=== PATIENT | female | born 1930 | race Caucasian/White ===

== ENCOUNTER 2016-11-08 14:15 | Observation (INO) ==
--- NOTE | 2016-11-08 16:07 | Emergency Department Note ---
Disposition Clinical Impression: Syncope Qualifiers: Syncope type: unspecified Qualified Code(s): R55 - Syncope and collapse Disposition: Admitted As Inpatient Condition: Fair Fall HPI - General Chief Complaint: ED Fall Stated Complaint: fall Time Seen by Provider: 11/08/16 14:19 Source: EMS Nursing Notes Reviewed: Yes Vital Signs Reviewed: Yes - History of Present Illness HPI Narrative: Patient presents complaint of syncopal episode. Patient was sitting in a chair and went to standing position. Patient states she lost consciousness. There was no loss of bowel bladder function. There is no report of previous history of similar symptoms. Per report patient back at her baseline functioning. Is a reported he numbness and tingling. Patient denies vision changes. Patient denies any change in appetite. - Related Data Home Medications Medication Instructions Recorded Confirmed Acetaminophen [Tylenol] 325 mg GTUBE PRN PRN 11/08/16 11/08/16 Acetaminophen [Tylenol] 650 mg GTUBE PRN PRN 11/08/16 11/08/16 Acetaminophen [Tylenol] 650 mg GTUBE Q12H 11/08/16 11/08/16 Aspirin Enteric Coated [Aspirin EC] 81 mg GTUBE DAILY 11/08/16 11/08/16 Atorvastatin [Lipitor] 40 mg GTUBE HS 11/08/16 11/08/16 Calcium Carbonate [Calcium] 600 mg GTUBE BID 11/08/16 11/08/16 Cholecalciferol (Vitamin D3) 1,000 unit GTUBE DAILY 11/08/16 11/08/16 [Vitamin D3] Cholestyramine/Aspartame 1 gm GTUBE DAILY 11/08/16 11/08/16 [Cholestyramine Light Packet] Diclofenac Sodium [Voltaren] 1 appl TP PRN PRN 11/08/16 11/08/16 Digoxin [Lanoxin] 0.125 mg GTUBE DAILY 11/08/16 11/08/16 Diltiazem HCl 90 mg GTUBE QID 11/08/16 11/08/16 Diphenoxylate/Atropine [Lomotil 1 each GTUBE PRN PRN 11/08/16 11/08/16 2.5 mg/0.025 mg] Donepezil HCl [Aricept] 10 mg GTUBE HS 11/08/16 11/08/16 Furosemide [Lasix] 40 mg GTUBE DAILY 11/08/16 11/08/16 Lactase [Lactase Enzyme] 4,500 unit GTUBE PRN PRN 11/08/16 11/08/16 Lactase [Lactase Enzyme] 9,000 unit GTUBE PRN PRN 11/08/16 11/08/16 Levothyroxine [Synthroid] 25 mcg GTUBE QAM 11/08/16 11/08/16 Metoprolol [Lopressor] 100 mg GTUBE Q12H 11/08/16 11/08/16 Multivitamin [Multi-Day Vitamins] 1 each GTUBE DAILY 11/08/16 11/08/16 Sertraline [Zoloft] 50 mg PO DAILY 11/08/16 11/08/16 Warfarin [Coumadin] 3 mg PO QPM 11/08/16 11/08/16 Allergies Allergy/AdvReac Type Severity Reaction Status Date / Time Sulfa (Sulfonamide Allergy Anaphylaxis Verified 08/16/16 05:59 Antibiotics) lactose AdvReac Unknown Verified 11/08/16 17:44 All systems ED: reviewed and negative except as stated. Fall PMH - Past Medical History Medical history: Reports: atrial fibrillation, CVA, hyperlipidemia, thyroid disease Surgical history: Reports: non-contributory Psychiatric history: Reports: no psych history - Social History Smoking Status: Never smoker Alcohol use: Reports: none Drug use: Reports: none Physical Exam - General Limitations: no limitations General appearance: alert - Head Head exam: atraumatic, normocephalic, normal inspection - Eye Eye exam: Present: normal appearance, PERRL, EOMI - ENT ENT exam: normal exam, normal oropharynx, mucous membranes moist - Neck Neck exam: Present: normal inspection, full ROM, trachea midline - Chest Chest inspection: Present: normal inspection, symmetric chest wall rise - Respiratory Respiratory exam: Present: normal lung sounds bilaterally - Cardiovascular Cardiovascular exam: Present: bradycardia, irregular rhythm - Abdominal Exam Abdominal exam: Present: soft, Non-Tender. Absent: tenderness, distention, guarding, rebound, rigidity - Extremities Exam Extremities exam: Present: normal inspection, full ROM. Absent: tenderness, pedal edema - Back Exam Back exam: Present: normal inspection, full ROM. Absent: tenderness - Neurological Exam Neurological exam: Present: alert, oriented X3 - Psychiatric Psychiatric exam: Present: normal affect, normal mood - Skin Skin exam: Present: warm, dry, intact, normal color Course Vital Signs Temperature 97.8 F 11/08/16 14:17 Pulse Rate 44 11/08/16 14:17 Respiratory Rate 18 11/08/16 14:17 Blood Pressure 124/75 11/08/16 14:17 O2 Sat by Pulse Oximetry 97 11/08/16 14:17 Temperature 97.8 F 11/08/16 14:17 Pulse Rate 70 11/08/16 16:17 Respiratory Rate 18 11/08/16 16:17 Blood Pressure 150/84 11/08/16 16:17 O2 Sat by Pulse Oximetry 97 11/08/16 16:17 Oxygen Delivery Oxygen Delivery Room Air Fall - Differential Diagnosis Likely: syncope, arrhythmia, seizure - Lab Data Lab results reviewed: Yes I reviewed the patient's lab results. Result diagrams: 11/08/16 16:09 11/08/16 16:09 Lab Results 11/08/16 11/08/16 11/08/16 Range/Units 16:09 16:09 16:09 WBC 7.2 (4.3-11.1) K/mcL RBC 4.71 (3.82-4.97) M/mcL Hgb 14.5 (11.5-15.4) g/dL Hct 44.5 (35.3-44.9) % MCV 94.5 (83.0-100.0) fL MCH 30.8 (28.0-33.3) pg MCHC 32.6 (31.6-35.5) g/dL RDW 13.2 (11.5-14.5) % Plt Count 298 (140-400) K/mcL MPV 9.3 L (9.4-12.4) fL Immature Gran % 0.4 (0-4) % Seg Neutrophils % 67.5 % Lymphocytes % 18.4 % Monocytes % 10.9 % Eosinophils % 2.5 % Basophils % 0.3 % Neutrophils # 4.9 (1.6-8.9) K/mcL Lymphocytes # 1.3 (0.6-4.6) K/mcL Monocytes # 0.8 (0.0-1.3) K/mcL Eosinophils # 0.2 (0.0-0.6) K/mcL Basophils # 0.0 (0.0-0.2) K/mcL PT 57.1 H* (9.4-12.1) Seconds INR 5.0 H* APTT 45.2 H (26.0-36.0) Seconds Sodium 139 (136-145) mEq/L Potassium 3.9 (3.5-4.5) mEq/L Chloride 106 (98-109) mEq/L Carbon Dioxide 26 (19-29) mEq/L BUN 14 (7-20) mg/dL Creatinine 0.75 (0.57-1.11) mg/dL Est GFR ( Amer) > 60 (> 60) Est GFR (Non-Af Amer) > 60 (> 60) BUN/Creatinine Ratio 19 (6-26) Glucose 106 H (70-99) mg/dL Calculated Osmolality 289 (280-300) Lactic Acid (0.5-2.2) mmol/L Calcium 8.7 (8.6-10.8) mg/dL Total Bilirubin 0.4 (0.2-1.2) mg/dL AST 21 (5-34) Units/L ALT 18 (0-55) Units/L Alkaline Phosphatase 54 (38-126) Units/L Troponin I (0-0.03) ng/mL Serum Total Protein 6.6 (6.0-8.3) g/dL Albumin 3.0 L (3.5-5.0) g/dL Globulin 3.6 H (2.4-3.5) g/dL Albumin/Globulin Ratio 0.8 L (1.1-2.2) Urine Color (Yellow) Urine Clarity (Clear) Urine pH (5.0-8.0) pH Units Ur Specific Evergreen (1.010-1.025) Urine Protein (Neg-Trace) mg/dL Urine Glucose (UA) (Normal) mg/dL Urine Ketones (Negative) mg/dL Urine Blood (Negative) Urine Nitrite (Negative) Urine Bilirubin (Negative) Urine Urobilinogen (Normal) mg/dL Ur Leukocyte Esterase (Negative) Urine Microscopic RBC (0-3) per hpf Urine Microscopic WBC (0-3) per hpf Ur Squamous Epith Cells (None-Few) per lpf Urine Bacteria (None-Few) per hpf Hyaline Casts (None-Few) per lpf Urine Yeast Ur Culture Indicated? (NO) 11/08/16 11/08/16 11/08/16 Range/Units 16:09 16:09 17:30 WBC (4.3-11.1) K/mcL RBC (3.82-4.97) M/mcL Hgb (11.5-15.4) g/dL Hct (35.3-44.9) % MCV (83.0-100.0) fL MCH (28.0-33.3) pg MCHC (31.6-35.5) g/dL RDW (11.5-14.5) % Plt Count (140-400) K/mcL MPV (9.4-12.4) fL Immature Gran % (0-4) % Seg Neutrophils % % Lymphocytes % % Monocytes % % Eosinophils % % Basophils % % Neutrophils # (1.6-8.9) K/mcL Lymphocytes # (0.6-4.6) K/mcL Monocytes # (0.0-1.3) K/mcL Eosinophils # (0.0-0.6) K/mcL Basophils # (0.0-0.2) K/mcL PT (9.4-12.1) Seconds INR APTT (26.0-36.0) Seconds Sodium (136-145) mEq/L Potassium (3.5-4.5) mEq/L Chloride (98-109) mEq/L Carbon Dioxide (19-29) mEq/L BUN (7-20) mg/dL Creatinine (0.57-1.11) mg/dL Est GFR ( Amer) (> 60) Est GFR (Non-Af Amer) (> 60) BUN/Creatinine Ratio (6-26) Glucose (70-99) mg/dL Calculated Osmolality (280-300) Lactic Acid 1.1 (0.5-2.2) mmol/L Calcium (8.6-10.8) mg/dL Total Bilirubin (0.2-1.2) mg/dL AST (5-34) Units/L ALT (0-55) Units/L Alkaline Phosphatase (38-126) Units/L Troponin I 0.02 (0-0.03) ng/mL Serum Total Protein (6.0-8.3) g/dL Albumin (3.5-5.0) g/dL Globulin (2.4-3.5) g/dL Albumin/Globulin Ratio (1.1-2.2) Urine Color Yellow (Yellow) Urine Clarity Clear (Clear) Urine pH 6.5 (5.0-8.0) pH Units Ur Specific [place] 1.005 L (1.010-1.025) Urine Protein Negative (Neg-Trace) mg/dL Urine Glucose (UA) Normal (Normal) mg/dL Urine Ketones Negative (Negative) mg/dL Urine Blood Large H (Negative) Urine Nitrite Negative (Negative) Urine Bilirubin Negative (Negative) Urine Urobilinogen Normal (Normal) mg/dL Ur Leukocyte Esterase Negative (Negative) Urine Microscopic RBC 5-15 H (0-3) per hpf Urine Microscopic WBC 0-3 (0-3) per hpf Ur Squamous Epith Cells Few (None-Few) per lpf Urine Bacteria None Seen (None-Few) per hpf Hyaline Casts None Seen (None-Few) per lpf Urine Yeast Test Not Performed Ur Culture Indicated? NO (NO) - Radiology Data Radiology results reviewed: Yes I reviewed the patient's radiology results. Chest X-Ray 11/08/16 14:48 IMPRESSION: No acute cardiopulmonary disease is identified. D/ / Vidal Solis MD / Vidal Solis MD Interpreting Provider: Vidal Solis MD Head CT 11/08/16 14:48 IMPRESSION: No acute intracranial abnormality. D/ / Damon Duran MD / Damon Duran MD Interpreting Provider: Damon Duran MD Cervical Spine CT 11/08/16 14:49 IMPRESSION: No acute abnormality of the cervical spine. Nonacute findings as discussed. D/ / Damon Duran MD / Damon Duran MD Interpreting Provider: Damon Duran MD Elbow X-Ray 11/08/16 14:50 IMPRESSION: Diffuse edema of the forearm and elbow without acute osseous abnormality. D/ / Damon Duran MD / Damon Duran MD Interpreting Provider: Damon Duran MD Forearm X-Ray 11/08/16 14:50 IMPRESSION: Diffuse edema of the forearm and elbow without acute osseous abnormality. D/ / Damon Duran MD / Damon Duran MD Interpreting Provider: Damon Duran MD Shoulder X-Ray 11/08/16 14:50 IMPRESSION: No acute osseous injury of the right shoulder is identified. D/ / Vidal Solis MD / Vidal Solis MD Interpreting Provider: Vdial Solis MD - EKG Data EKG attestation: Yes I reviewed and interpreted this EKG. Rate: bradycardia Rhythm: A.Fib Critical Care Time Total Critical Care Time: 30 Attestation: Critical care performed: Time is exclusive of separately billable procedures. Time includes: direct patient care, patient reassessment, coordination of patient care, interpretation of data (laboratory data, radiology data, and respiratory data), review of patient's medical records, medical consultation and documentation of patient care. Procedures included in critical care time: Procedures excluded from critical care time:
[2016-11-08 16:20] LABS: Basophils % 0.3 %; Eosinophils # 0.2 K/mcL (0.0-0.6); Eosinophils % 2.5 %; Hematocrit 44.5 % (35.3-44.9); Hemoglobin 14.5 g/dL (11.5-15.4); Immature Granulocytes % 0.4 % (0-4); Lymphocytes # 1.3 K/mcL (0.6-4.6); Lymphocytes % 18.4 %; Mean Corpuscular HGB Conc 32.6 g/dL (31.6-35.5); Mean Corpuscular Hemoglobin 30.8 pg (28.0-33.3); Mean Corpuscular Volume 94.5 fL (83.0-100.0); Mean Platelet Volume 9.3 fL (9.4-12.4); Monocytes # 0.8 K/mcL (0.0-1.3); Monocytes % 10.9 %; Neutrophils # 4.9 K/mcL (1.6-8.9); Platelet Count 298 K/mcL (140-400); Red Blood Count 4.71 M/mcL (3.82-4.97); Red Cell Distribution Width 13.2 % (11.5-14.5); Segmented Neutrophils % 67.5 %
[2016-11-08 16:36] LABS: Alanine Aminotransferase 18 Units/L (0-55); Albumin/Globulin Ratio 0.8 (1.1-2.2); Alkaline Phosphatase 54 Units/L (38-126); Aspartate Amino Transferase 21 Units/L (5-34); BUN/Creatinine Ratio 19 (6-26); Bilirubin,Total 0.4 mg/dL (0.2-1.2); Blood Urea Nitrogen 14 mg/dL (7-20); Calcium 8.7 mg/dL (8.6-10.8); Carbon Dioxide 26 mEq/L (19-29); Chloride 106 mEq/L (98-109); Globulin 3.6 g/dL (2.4-3.5); Glucose 106 mg/dL (70-99); Osmolality,Calculated 289 (280-300); Potassium 3.9 mEq/L (3.5-4.5); Sodium 139 mEq/L (136-145); Total Protein 6.6 g/dL (6.0-8.3); eGFR For African Americans > 60 (> 60); eGFR For Non-African Americans > 60 (> 60)
[2016-11-08 16:43] LABS: Activated Partial Thrombo Time 45.2 Seconds (26.0-36.0)
[2016-11-08 16:48] LABS: Prothrombin Time 57.1 Seconds (9.4-12.1)
[2016-11-08 17:41] LABS: Bilirubin,Urine Negative (Negative); Blood,Urine Large (Negative); Clarity,Urine Clear (Clear); Color,Urine Yellow (Yellow); Glucose,Urine (UA) Normal (Normal); Ketones,Urine Negative (Negative); Leukocyte Esterase,Urine Negative (Negative); Nitrite,Urine Negative (Negative); PH,Urine 6.5 pH Units (5.0-8.0); Protein,Urine Negative (Neg-Trace); Specific Gravity,Urine 1.005 (1.010-1.025); Urobilinogen,Urine Normal (Normal)
[2016-11-08 17:46] LABS: Bacteria,Urine None Seen per hpf (None-Few); Hyaline Casts,Urine None Seen per lpf (None-Few); Squamous Epithelial Cell,Urine Few per lpf (None-Few); WBC,Urine 0-3 per hpf (0-3)
[2016-11-08] MEDS ORDERED: *HR* Phytonadione 5 MG TABLET PO ONE (18:21)
--- NOTE | 2016-11-08 21:51 | Internal Med History&Physical ---
Date of Encounter: 11/08/16 Time of Encounter: 08:00 Assessment and Plan (1) Syncope Current visit: Yes Status: Acute Multifactorial. Bradycardia with orthostatic involvement possibly secondary to medications. Will decrease metoprolol to 50mg BID. Closely monitor BPs PT and OT ordered. Chest XR demonstrates no acute cadiopulmonary disease. XR of the shoulder, elbow, and forearm demonstrate no acute osseous abnormality CT of the head and neck demonstrate no acute intracranial abnormality and no acute abnormality of the cervical spine. Repeat CT of the head demonstrates no acute intracranial abnormality. EKG demonstrates bradycardia with atrial fibrillation. Qualifiers: Syncope type: unspecified Qualified Code(s): R55 - Syncope and collapse (2) Supratherapeutic INR Current visit: Yes Status: Acute Vitamin K given in the emergency department. Hold coumadin until within therapeutic range for A. Fib of 2-3. Recheck Coags in the AM (3) Altered mental status Current visit: Yes Status: Acute Repeat CT of the head demonstrates no acute intracranial abnormality. 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 Patient is pleasantly confused without agitation. Continue 1:1 observation Haldol 2mg IM PRN for severe agitation. Presumed sundowning. Unable to assess code status. Full code for time being. Please reassess in the morning with patient's family members present. Qualifiers: Altered mental status type: transient alteration of awareness Qualified Code(s): R40.4 - Transient alteration of awareness (4) Atrial fibrillation Current visit: Yes Status: Acute On coumadin, currently supratherapeutic. Rate control with metoprolol 50mg Q12hr. Continue digoxin. Continue cardizem. Qualifiers: Atrial fibrillation type: chronic Qualified Code(s): I48.2 - Chronic atrial fibrillation (5) Hypothyroidism Current visit: Yes Status: Acute Continue synthroid. Qualifiers: Hypothyroidism type: acquired Qualified Code(s): E03.9 - Hypothyroidism, unspecified (6) History of CVA (cerebrovascular accident) Current visit: Yes Status: Acute No evidence of acute CVA. Residual RUE weakness due to previous CVA. (7) DVT prophylaxis Current visit: Yes Status: Acute Patient is currently supratherapeutic on her Coumadin. PT is 57.1 INR of 5.0 and PTT of 45.2 Will continue to monitor at this time. (8) Hyperlipidemia Current visit: Yes Status: Acute Continue lipitor Qualifiers: Hyperlipidemia type: unspecified Qualified Code(s): E78.5 - Hyperlipidemia , unspecified (9) Gastrostomy tube dependent Current visit: Yes Status: Acute Unclear etiology. Will keep NPO for time being. Unable to obtain history of why the patient needs G-tube at this time. Internal Medicine - H&P: HPI Chief complaint: sycopal episode Admitted From: Emergency Dept Plans for Post Hospital Care: Home History of present illness: Ms. Bird is a 86 year old female with PMH significant of A. fib, history of CVA, HLD, alzheimers and hypothyroidism who presented to the emergency department after a syncopal episode. Further history was unobtainable as the patient had a change in mental status after initial evaluation. The patient had a repeat head CT that did not demonstrate any acute intracranial hemorrhage. She has underlying dementia. The history is obtained by medical records and talking with the emergency department physician. The patient suffered a syncopal episode after standing from a sitting position. She does not have any history of syncopal episodes. She did not lose bowel or bladder function during her syncopal episode. She fell onto her right side, but did not suffer any fractures. Upon arrival to the ED the patient was alert and oriented but found to be bradycardic. She additionally had a supratherapeutic INR. The of the patient stated she was back to her baseline when she first arrived to the ED. At this time the patient is saying that she is going to be in March and was asking for her mother. She does not know where she is or why she is here. She denies having any pain that this time. Past Med Surg Social Fam HX - Past Medical History Medical history: atrial fibrillation, CVA, hyperlipidemia, thyroid disease Psychiatric history: no psych history - Past Surgical History Surgical History: non-contributory - Social History Smoking Status: Never smoker Smokeless Tobacco Status: No Alcohol use: none Drug use: none - Additional Family History Additional family history: Unobtainable due to mental status Internal Medicine - H&P: Meds Acetaminophen [Tylenol] 325 mg GTUBE PRN PRN 11/08/16 [History] Acetaminophen [Tylenol] 650 mg GTUBE PRN PRN 11/08/16 [History] Acetaminophen [Tylenol] 650 mg GTUBE Q12H 11/08/16 [History] Aspirin Enteric Coated [Aspirin EC] 81 mg GTUBE DAILY 11/08/16 [History] Atorvastatin [Lipitor] 40 mg GTUBE HS 11/08/16 [History] Calcium Carbonate [Calcium] 600 mg GTUBE BID 11/08/16 [History] Cholecalciferol (Vitamin D3) [Vitamin D3] 1,000 unit GTUBE DAILY 11/08/16 [ History] Cholestyramine/Aspartame [Cholestyramine Light Packet] 1 gm GTUBE DAILY [History] Diclofenac Sodium [Voltaren] 1 appl TP PRN PRN 11/08/16 [History] Digoxin [Lanoxin] 0.125 mg GTUBE DAILY 11/08/16 [History] Diltiazem HCl 90 mg GTUBE QID 11/08/16 [History] Diphenoxylate/Atropine [Lomotil 2.5 mg/0.025 mg] 1 each GTUBE PRN PRN 11/08/16 [ History] Donepezil HCl [Aricept] 10 mg GTUBE HS 11/08/16 [History] Furosemide [Lasix] 40 mg GTUBE DAILY 11/08/16 [History] Lactase [Lactase Enzyme] 4,500 unit GTUBE PRN PRN 11/08/16 [History] Lactase [Lactase Enzyme] 9,000 unit GTUBE PRN PRN 11/08/16 [History] Levothyroxine [Synthroid] 25 mcg GTUBE QAM 11/08/16 [History] Metoprolol [Lopressor] 100 mg GTUBE Q12H 11/08/16 [History] Multivitamin [Multi-Day Vitamins] 1 each GTUBE DAILY 11/08/16 [History] Sertraline [Zoloft] 50 mg PO DAILY 11/08/16 [History] Warfarin [Coumadin] 3 mg PO QPM 11/08/16 [History] Allergies Sulfa (Sulfonamide Antibiotics) Allergy (Verified 08/16/16 05:59) Anaphylaxis lactose Adverse Reaction (Verified 11/08/16 17:44) Unknown Per ECF list ROS unobtainable: due to mental status All Systems PM: A 10-system review of systems was performed and is negative for pertinent findings except as documented above in the HPI. - Constitutional Vitals: Temp Pulse Resp BP Pulse Ox 97.8 F 70 18 155/97 97 11/08/16 14:17 11/08/16 16:17 11/08/16 19:37 11/08/16 19:37 11/08/16 16:17 General appearance: Present: A&O X 1 (To person) - Head Head exam: Present: normocephalic Additional comments: Mild bruising present lateral to the right eye. - Eye Eye exam: Present: PERRL, conjuntiva pink, sclera anicteric Pupils: Present: PERRL - Neck Neck exam general surgery: Present: supple, trachea midline. Absent: lymphadenopathy - Respiratory Respiratory exam: Present: CTAB. Absent: accessory muscle use, rales, rhonchi, wheezes - Cardiovascular Cardiovascular exam: Present: irregular rhythm, +S1, +S2. Absent: diastolic murmur, gallop, rubs, systolic murmur - GI/Abdominal GI/Abdominal exam: Present: normal bowel sounds, soft, no peritoneal signs. Absent: distended, tenderness Additional comments: G-tube in place on the left side of the abdomen. - Extremities Exam Extremities exam: Present: warm, radial pulses palpable and symetrical. Absent : calf tenderness, cyanotic, pedal edema Additional comments: Swelling of the right forearm present with mild ecchymosis. - Neurological Exam Neurological exam: Present: CN II-XII intact. Absent: facial droop, speech deficit Additional comments: Right upper extremity weakness 4/5 due to prior CVA. - Skin Skin exam: Present: dry, intact Internal Med - H&P Results - Labs CBC & Chem 7: 11/08/16 16:09 11/08/16 16:09
[2016-11-08] MEDS ORDERED: Naloxone 0.4 MG/ML INJ IVP PRN (23:12)
[2016-11-09] MEDS: Metoprolol 100 MG TABLET GTUBE SCH ×2 (00:04→10:47)
[2016-11-09] MEDS ORDERED: Haloperidol Lactate 5 MG/ML VIAL IM ONE (04:16)
[2016-11-09] MEDS ORDERED: Haloperidol Lactate 5 MG/ML VIAL ONE (04:25)
[2016-11-09 04:59] LABS: Basophils % 0.2 %; Eosinophils # 0.2 K/mcL (0.0-0.6); Eosinophils % 1.7 %; Hemoglobin 14.2 g/dL (11.5-15.4); Immature Granulocytes % 0.3 % (0-4); Lymphocytes # 1.8 K/mcL (0.6-4.6); Lymphocytes % 18.8 %; Mean Corpuscular HGB Conc 33.8 g/dL (31.6-35.5); Mean Corpuscular Hemoglobin 31.8 pg (28.0-33.3); Monocytes # 0.9 K/mcL (0.0-1.3); Monocytes % 9.5 %; Neutrophils # 6.7 K/mcL (1.6-8.9); Platelet Count 260 K/mcL (140-400); Red Blood Count 4.47 M/mcL (3.82-4.97); Red Cell Distribution Width 13.1 % (11.5-14.5); Segmented Neutrophils % 69.5 %
[2016-11-09 05:00] LABS: INR 2.6; Prothrombin Time 28.7 Seconds (9.4-12.1)
[2016-11-09 07:32] LABS: BUN/Creatinine Ratio 14 (6-26); Blood Urea Nitrogen 9 mg/dL (7-20); Calcium 9.1 mg/dL (8.6-10.8); Carbon Dioxide 23 mEq/L (19-29); Chloride 106 mEq/L (98-109); Glucose 108 mg/dL (70-99); Osmolality,Calculated 289 (280-300); Potassium 3.6 mEq/L (3.5-4.5); Sodium 140 mEq/L (136-145); eGFR For African Americans > 60 (> 60); eGFR For Non-African Americans > 60 (> 60)
[2016-11-09] MEDS ORDERED: LACTASE 9000 UNIT GTUBE PRN (07:54)
[2016-11-09] MEDS ORDERED: LACTASE ENZYME GTUBE PRN (07:54)
[2016-11-09] MEDS ORDERED: Diphenoxylate/Atropine 1 TAB TABLET PO PRN (07:54)
[2016-11-09 08:37] VITALS: BP 163/84
[2016-11-09] MEDS ORDERED: CHOLESTYRAMINE GTUBE SCH (09:00)
[2016-11-09] MEDS ORDERED: Aspirin Enteric Coated 81 MG Tablet PO SCH (09:00)
[2016-11-09] MEDS ORDERED: Levothyroxine 25 MCG TABLET PO SCH (09:00)
[2016-11-09] MEDS ORDERED: Furosemide 40 MG TABLET PO SCH (09:00)
[2016-11-09] MEDS ORDERED: *HR* Digoxin 0.125 MG TABLET PO SCH (09:00)
[2016-11-09] MEDS ORDERED: ASPARTAME GTUBE SCH (09:00)
--- NOTE | 2016-11-09 13:31 | Discharge Summary ---
Date of Encounter: 11/09/16 Time of Encounter: 13:00 - Discharge Diagnosis (1) Syncope Priority: Primary Status: Acute Comments: Patient's stating that she was sitting in her wheelchair at the half-way while she was in the open dining area when she tried to stand up and fell. Superficial laceration noted to right forearm as well as right episcopalian area as she broke her glasses. Unknown causation, patient was bradycardic upon presentation and her beta sulaiman dosage was decreased. Chest x-ray negative. Head CT negative 2. Cervical spine CT negative for acute processes. Plain films of her elbow forearm, and shoulder all negative for acute processes. Urinalysis negative. Recommend follow-up closely outpatient. Sending back to [facility] where she has been inpatient since July according to her . Qualifiers: Syncope type: unspecified Qualified Code(s): R55 - Syncope and collapse (2) Altered mental status Priority: Primary Status: Resolved Comments: Patient was alert and pleasantly confused throughout this admission. Has been present on day of discharge, states she is acting at her baseline. Sending back to [facility]. (3) Atrial fibrillation Priority: Secondary Status: Chronic Comments: Bradycardic upon presentation, beta sulaiman dose is decreased. Initial INR supratherapeutic and the patient was given vitamin K in the emergency department. Therapeutic on day of discharge, recommend follow-up closely outpatient. Qualifiers: Atrial fibrillation type: chronic Qualified Code(s): I48.2 - Chronic atrial fibrillation (4) DVT prophylaxis Priority: Primary Status: Acute Comments: Supratherapeutic INR on day 1, therapeutic INR on day 2. (5) Gastrostomy tube dependent Priority: Secondary Status: Resolved Comments: According to the patient's , she has been eating a regular diet for quite some time. He states that they are returning to [facility] tomorrow to have the G-tube removed. (6) History of CVA (cerebrovascular accident) Priority: Secondary Status: Chronic Comments: No new symptoms. Repeat head CT 2 unremarkable for acute processes. (7) Hypothyroidism Priority: Secondary Status: Chronic Comments: No recent check of TSH at [facility], follow-up outpatient Qualifiers: Hypothyroidism type: acquired Qualified Code(s): E03.9 - Hypothyroidism, unspecified (8) Supratherapeutic INR Priority: Primary Status: Resolved - Discharge Medications Prescriptions: HydrALAZINE 10 mg PO Q6HR PRN #30 tablet PRN Reason: Hypertension Metoprolol [Lopressor] 50 mg PO Q12H #15 tablet Warfarin [Coumadin] 2 mg PO 1800 #30 tablet Home Medications: Acetaminophen [Tylenol] 325 mg GTUBE PRN PRN 11/08/16 [History] Acetaminophen [Tylenol] 650 mg GTUBE PRN PRN 11/08/16 [History] Acetaminophen [Tylenol] 650 mg GTUBE Q12H 11/08/16 [History] Aspirin Enteric Coated [Aspirin EC] 81 mg GTUBE DAILY 11/08/16 [History] Atorvastatin [Lipitor] 40 mg GTUBE HS 11/08/16 [History] Calcium Carbonate [Calcium] 600 mg GTUBE BID 11/08/16 [History] Cholecalciferol (Vitamin D3) [Vitamin D3] 1,000 unit GTUBE DAILY 11/08/16 [ History] Cholestyramine/Aspartame [Cholestyramine Light Packet] 1 gm GTUBE DAILY [History] Diclofenac Sodium [Voltaren] 1 appl TP PRN PRN 11/08/16 [History] Digoxin [Lanoxin] 0.125 mg GTUBE DAILY 11/08/16 [History] Diltiazem HCl 90 mg GTUBE QID 11/08/16 [History] Diphenoxylate/Atropine [Lomotil 2.5 mg/0.025 mg] 1 each GTUBE PRN PRN 11/08/16 [ History] Donepezil HCl [Aricept] 10 mg GTUBE HS 11/08/16 [History] Furosemide [Lasix] 40 mg GTUBE DAILY 11/08/16 [History] Lactase [Lactase Enzyme] 4,500 unit GTUBE PRN PRN 11/08/16 [History] Lactase [Lactase Enzyme] 9,000 unit GTUBE PRN PRN 11/08/16 [History] Levothyroxine [Synthroid] 25 mcg GTUBE QAM 11/08/16 [History] Multivitamin [Multi-Day Vitamins] 1 each GTUBE DAILY 11/08/16 [History] Sertraline [Zoloft] 50 mg PO DAILY 11/08/16 [History] HydrALAZINE 10 mg PO Q6HR PRN #30 tablet 11/09/16 [Rx] Metoprolol [Lopressor] 50 mg PO Q12H #15 tablet 11/09/16 [Rx] Warfarin [Coumadin] 2 mg PO 1800 #30 tablet 11/09/16 [Rx] Allergies/Adverse Reactions: Allergies Sulfa (Sulfonamide Antibiotics) Allergy (Verified 08/16/16 05:59) Anaphylaxis lactose Adverse Reaction (Verified 11/08/16 17:44) Unknown Per ECF list Procedures/tests Complete & Pending: Procedures Performed prior 72 hours Category Date Time Status Head CT without Contrast [CT head/brain wo con] [CT] Cat Scan 11/08/16 19:38 Completed Stat Date of admission: 11/08/16 18:33 Primary care physician: Raiza Stephens Consults: 11/08/16 23:11 Consult to Physical Therapy [CONS] Routine Comment: Evaluate, develop and implement POC OT [Consult to Occupational Therapy] [CONS] Routine Comment: Evaluate, develop and implement POC 11/09/16 10:25 Consult to Ski Lift Mechanic [CONS] Routine Reason for SW Consult: discharge planning; from [facility] Consult to Speech Therapy [CONS] Routine Comment: Evaluate, develop and implement POC Reason for Consult: Patient from [facility], stroke in July, need evaluation for diet Call Completed: Yes Discharging clinician: Mattie Hare Anticipated date of discharge: 11/09/16 (sending back to [facility]) - Patient Status Disposition: Transfer Inpatient Rehab Fac Condition: Fair Functional capacity at discharge: uses cane/walker Overall status at discharge: patient is back to baseline - Discharge Instructions Follow Up With: Raiza Cardona MD [Primary Care Provider] - Additional Instructions: Follow-up with primary care provider in one to 2 weeks. Have INR checked within 1-2 days - Diet and Activity Activity: as per physical therapy, increase activity as tolerated Diet: other (thin liquids with advanced soft diet) Hospital course: Ms. Bird is a 86 year old female with past medical history of atrial fibrillation on Coumadin, prior CVA, hyperlipidemia, Alzheimer's, hypothyroidism. Has been a resident at [facility] since July 2016 following a stroke. She presented to the emergency department after a syncopal episode. Her states that she was sitting in her wheelchair in the opened dining area when she went to stand up and lost consciousness. She had a superficial laceration to her right forearm as well as small, superficial laceration to the right side of her episcopalian as she broke her glasses. Workup in the emergency department unremarkable except for bradycardia and a supratherapeutic INR treated with vitamin K in the emergency department. Chest x-ray negative. Head CT [address] negative. Plain films of elbow, forearm, shoulder all negative as well. Patient was admitted to the hospitalist service for further evaluation and management. her beta sulaiman dosage was decreased. INR normalized. She was admitted and observed over the course of 2 days. She remained alert and pleasantly confused consistent with her baseline according to her . Regarding her G-tube, her states that she has been eating normally for quite some time and states that they have a follow-up appointment with [facility] tomorrow to have a G-tube removed. Urinalysis negative. Hypertensive at times however the patient became agitated and confused. Sending to half-way with as needed by mouth hydralazine for continued hypertension. Also recommend rechecking INR within 1- 2 days post discharge, resumed at a lower dosage. She was seen and evaluated by speech therapy who cleared her for thin liquids and advanced soft diet. She was discharged back to [facility] in stable condition with close outpatient follow-up recommended. ITS Impressions Chest X-Ray 11/08/16 14:48 IMPRESSION: No acute cardiopulmonary disease is identified. D/ / Vidal Solis MD / Vidal Solis MD Interpreting Provider: Vidal Solis MD Head CT 11/08/16 14:48 IMPRESSION: No acute intracranial abnormality. D/ / Damon Duran MD / Damon Duran MD Interpreting Provider: Damon Duran MD Cervical Spine CT 11/08/16 14:49 IMPRESSION: No acute abnormality of the cervical spine. Nonacute findings as discussed. D/ / Damon Duran MD / Damon Duran MD Interpreting Provider: Damon Duran MD Elbow X-Ray 11/08/16 14:50 IMPRESSION: Diffuse edema of the forearm and elbow without acute osseous abnormality. D/ / Damon Duran MD / Damon Duran MD Interpreting Provider: Damon Duran MD Forearm X-Ray 11/08/16 14:50 IMPRESSION: Diffuse edema of the forearm and elbow without acute osseous abnormality. D/ / Damon Duran MD / Damon Duran MD Interpreting Provider: Damon Duran MD Shoulder X-Ray 11/08/16 14:50 IMPRESSION: No acute osseous injury of the right shoulder is identified. D/ / Vidal Solis MD / Vidal Solis MD Interpreting Provider: Vidal Solis MD Head CT 11/08/16 19:38 IMPRESSION: No acute intracranial abnormality. D/ / Marcus Pagan MD / Marcus Pagan MD Interpreting Provider: Marcus Pagan MD - Time Spent with Patient Total time spent providing and/or coordinating discharge services: - Constitutional Vitals: Temp Pulse Resp BP Pulse Ox 97.4 F L 95 18 163/84 97 11/09/16 08:36 11/09/16 08:36 11/09/16 08:36 11/09/16 08:36 11/09/16 08:37 General appearance: Present: A&O X 1 (To person; pleasantly confused), pleasant , no acute distress. Absent: answers questions appropriately - Head Head exam: Present: atraumatic, normocephalic - Eye Eye exam: Present: PERRL, conjuntiva pink, sclera anicteric Pupils: Present: PERRL - Neck Neck exam general surgery: Present: supple, trachea midline. Absent: lymphadenopathy - Respiratory Respiratory exam: Present: CTAB. Absent: accessory muscle use, rales, respiratory distress, rhonchi, wheezes - Cardiovascular Cardiovascular exam: Present: RRR, +S1, +S2. Absent: diastolic murmur, gallop, rubs, systolic murmur - GI/Abdominal GI/Abdominal exam: Present: normal bowel sounds, soft, no peritoneal signs. Absent: distended, tenderness - Extremities Exam Extremities exam: Present: warm, radial pulses palpable and symetrical. Absent : calf tenderness, cyanotic, pedal edema - Neurological Exam Neurological exam: Present: alert, CN II-XII intact, no focal deficits. Absent : pronater drift, facial droop, speech deficit - Skin Skin exam: Present: dry, intact, normal color, warm - Expanded Skin Exam Type of lesion: Present: laceration Distribution of rash: Present: face, RUE Description of rash: Absent: discharge, swelling
--- NOTE | 2016-11-09 14:41 | Electrocardiograph Report ---
[facility] Test Date: 2016-11-08 Pat Name: Katharine Bird Department: [id number] Room: 3B13 Gender: F Crisis Mental Health Therapist: [facility] : [id number] Requested By: Avila Malhotra Order Number: [id number] Reading MD: Raiza Davis Measurements Intervals [place] Rate: 51 P: SD: 0 QRS: 5 QRSD: 80 T: 74 QT: 422 QTc: 398 Interpretive Statements ATRIAL FIBRILLATION WITH SLOW VENTRICULAR RESPONSE ANTEROSEPTAL MYOCARDIAL INFARCTION, PROBABLY OLD Electronically Signed On 11-09-16 14:36:17 EST by Raiza Davis
[2016-11-09] MEDS ORDERED: *HR* Warfarin 3 MG TABLET PO ONE (18:00)
[2016-11-09] MEDS ORDERED: Warfarin perPT PO PRN (18:00)
== END 2016-11-09 14:31 ==
LOC: 3BNU 14:15 → EMEROO 14:15 → 3BNU 22:00
PROVIDERS: ADMIT Internal Medicine; ATTEND Nurse Practitioner Family